=== PATIENT | male | born 1960 | race Caucasian/White ===

== ENCOUNTER 2025-03-05 09:12 | Emergency (ER) | payer MEDICARE, OTHER ==
[~2025-03-05] VITALS: Ht 185.4 cm; Wt 68.1 kg
[2025-03-05 09:21] VITALS: TEMP 98.1
[2025-03-05] MEDS: SODIUM CHLORIDE 0.9% 1,000 ML IV ONE (10:39)
[2025-03-05 10:41] LABS: PLATELET COUNT (AUTO) 138 K/uL (150-450); RED BLOOD CELL COUNT(AUTO) 5.20 MIL/uL (4.50-5.90); RED CELL DISTRIBUTION WIDTH 13.5 % (11.5-14.5); WHITE BLOOD COUNT (AUTO) 7.9 K/uL (4.5-11.0)
[2025-03-05 10:47] LABS: CALCIUM, TOTAL 9.1 mg/dL (8.8-10.5); CREATININE 1.42 mg/dL (0.60-1.30); GLOMERULAR FILTR. RATE CALC 50.0 mL/min (>60); GLUCOSE,RANDOM 105.0 mg/dL (70-110); SODIUM SERUM 139.0 mmol/L (136-145); UREA NITROGEN, BLOOD 15.0 mg/dL (7-18)
[2025-03-05 13:41] VITALS: O2SAT 95
[2025-03-05 14:03] LABS: APPEARANCE,URINE CLEAR (CLEAR); GLUCOSE, URINE (UA) NEGATIVE (NEGATIVE); LEUKOCYTE ESTERASE ,URINE NEGATIVE (NEGATIVE); NITRATE,URINE NEGATIVE (NEGATIVE); OCCULT BLOOD,URINE NEGATIVE (NEGATIVE); SPECIFIC GRAVITIY, URINE 1.013 (1.003-1.030)
[2025-03-05 14:30] VITALS: BP 166/99; PULSE 111; RESP 17
== END 2025-03-05 15:21 | disposition home or self-care (01) ==
LOC: EMS 09:15
DX: F25.9 Schizoaffective disorder, unspecified (principal); R53.1 Weakness; F31.9 Bipolar disorder, unspecified; Z88.0 Allergy status to penicillin; Z88.1 Allergy status to other antibiotic agents; Z90.49 Acquired absence of other specified parts of digestive tract
CPT/HCPCS: 80048; 81003; 85025; 93005; 99284